=== PATIENT | female | born 1970 | race Caucasian/White ===

== ENCOUNTER → 2017-03-17 | Outpatient (CLI) | payer BC ==
[~2017-03-17] MED LIST: ADVAIR 250-501 EAC1 IH; ALBUTEROL17 GM INH; FLOMAX0.4 M1 PO; KEFLEX500 MG PO; LEVAQUIN PO; MIRALAX17 G2 PO; OXECTA7.5 MG PO; ROBAXIN 750750 M1 PO; ROXICODONE5 MG PO; XARELTO15 MG PO; XARELTO20 MG PO
--- NOTE | ~2017-03-17 | CT2 ---
[facility] A Service of [facility] & [facility] RADIOLOGY TEXT RESULTS PATIENT: KEV TORRES LOCATION: [facility] : 72 UNIT #: [id number] AGE: [address]: Shea Cline MD SEX: F ORDER DR: [id number] [facility] [address] [place], [place] [address] [id number] O MR#: [id number] [facility] #: [id number] NAME: KEV TORRES : 1970 SEX: F STUDY DATE/TIME: 03/17/2017 16:43 UNIT: [facility] ROOM: STUDY DESCRIPTION: CT Abd and Pelv W Cont Attending Physician: Shea Cline M.D. Referring Physician: Shea Cline M.D. Ordering Physician: Shea Cline M.D. Primary Care Physician: Shea Cline M.D. MEDICAL IMAGING REPORT This report is preliminary unless electronic signature is present EXAM CT abdomen and pelvis with oral and IV contrast HISTORY Right lower quadrant pain and back pain for 2 weeks. Fever since yesterday. TECHNIQUE This CT exam was performed with one or more of the following radiation dose reduction techniques: automatic control, adjustment of mA and/or kV according to patient size, and iterative reconstruction. FINDINGS CT abdomen and pelvis was performed with oral and IV contrast. CT ABDOMEN: There is mild focal pericolonic stranding about a short segment of colon in the splenic flexure, with adjacent short segment wall thickening. This could be secondary to focal infectious or inflammatory colitis. Correlation to history and symptoms is recommended. No bowel dilatation. The liver, gallbladder, spleen, pancreas, kidneys, and adrenal glands are normal. Incidental 4 mm cyst in the mid right kidney. Normal caliber abdominal aorta. CT PELVIS: Normal appendix. Small amount of free fluid in the pelvis and physiologic left ovarian cyst, incidentally noted. No bowel dilatation. Urinary bladder is normal. IMPRESSION 1. Probable focal short segment infectious inflammatory colitis in the splenic flexure where there is short-segment wall thickening and adjacent pericolonic stranding. 2. No bowel obstruction. 3. No acute findings in the remainder of the abdomen or pelvis. STS. [facility] A Service of [facility] & [facility] RADIOLOGY TEXT RESULTS PATIENT: KEV TORRES LOCATION: [facility] : 72 UNIT #: [id number] AGE: [address]: Shea Cline MD SEX: F ORDER DR: 4. Normal appendix. No urinary obstruction. Dictated by... Edwin Chavira M.D. THIS IS AN ELECTRONICALLY VERIFIED REPORT Edwin Chavira M.D. at 03/18/2017 8:38 PM DFL/rishi TD: 03/17/2017 23:05 JOB #: [id number] MEDICAL IMAGING REPORT Page 1 of 1 COPY
== END | disposition home or self-care (01) ==
LOC: CCAT 14:42
DX: R10.9 Unspecified abdominal pain (principal)
CPT/HCPCS: 74177; Q9967